=== PATIENT | male | born 1955 | race Two or more races ===

== ENCOUNTER 2020-08-09 15:47 | Emergency (ER) | payer OTHER, BC, MEDICAID, SELFPAY ==
--- NOTE | ~2020-08-09 | CT_ITS ---
EXAMINATION: CT cervical spine wo con DATE: 08/09/2020 16:27 INDICATION: Neck pain TECHNIQUE: Computed tomography (CT) of the cervical spine was performed without intravenous contrast. Automated exposure control and iterative reconstruction technique were employed. The dose-length pro duct was 434.39 mGy-cm. COMPARISON: None FINDINGS: Alignment is normal. Vertebral body heights are normal. No fracture. Mild disc height loss at C5-C6 a nd T1-T2. Prominent central disc extrusion with disc material extending cephalad and caudal to the le fredi of the endplates at C3-C4 resulting in mild central canal stenosis. There are disc bulges resulti ng in additional minimal to mild central canal stenosis at multiple levels and remaining cervical spi ne.. Multilevel mild cervical facet and uncovertebral osteoarthritis resulting in mild bilateral neur al foraminal stenosis at C4-C5. Atherosclerotic calcifications at the right carotid bulb. Cervical so ft tissues are otherwise unremarkable. Mastoid air cells, middle ear cavities and visualized portions of the airway and apices of lungs are clear. Suggestion of mild emphysema the apices. Mild mucosal t hickening in the right maxillary sinus. IMPRESSION: 1. Mild cervical spondylosis. No acute osseous abnormality. Reviewed, dictated and finalized at location A.
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
[2020-08-09 15:49] VITALS: BP 160/85; PULSE 88; RESP 18; TEMP 36.3; O2SAT 97
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
[2020-08-09] MEDS: KETOROLAC (*BKC) 60 MG/2 ML VIAL IM (16:20)
== END 2020-08-09 18:10 | disposition home or self-care (01) ==
PROVIDERS: Emergency Provider Nurse Practitioner
DX: S16.1XXA Strain of muscle, fascia and tendon at neck level, initial encounter (principal); S39.012A Strain of muscle, fascia and tendon of lower back, initial encounter; M47.812 Spondylosis without myelopathy or radiculopathy, cervical region; M47.815 Spondylosis without myelopathy or radiculopathy, thoracolumbar region; V49.40XA Driver injured in collision with unspecified motor vehicles in traffic accident, initial encounter
CPT/HCPCS: 72072; 72100; 72125; 96372; 99284; J1885